=== PATIENT | female | born 1960 | race Caucasian/White ===

== ENCOUNTER 2020-12-04 12:05 | Inpatient (IN) | payer BC ==
[~2020-12-04] VITALS: Ht 167.6 cm; Wt 158.8 kg
[2020-12-04 14:35] LABS: RED BLOOD COUNT 4.46 M/UL (4.00-5.10); WHITE BLOOD COUNT 6.9 K/UL (4.5-11.0)
[2020-12-04] MEDS ORDERED: SULFAMETHOXAZO1 EACH PO (16:45)
[2020-12-04] MEDS ORDERED: ENBREL50 MG/1 M1 SQ (16:46)
[2020-12-04] MEDS ORDERED: WARFARIN SODIUM1 MG PO (16:47)
[2020-12-04] MEDS ORDERED: WARFARIN SODIUM5 MG PO (16:47)
[2020-12-04] MEDS ORDERED: OXYBUTYNIN CHLO15 MG PO (16:49)
[2020-12-04] MEDS ORDERED: POTASSIUM CITR10 MEQ PO (16:50)
[2020-12-04] MEDS ORDERED: TENORMIN 50 MG50 MG PO (16:51)
[2020-12-04] MEDS ORDERED: MONTELUKAST SOD10 MG PO (16:51)
[2020-12-04] MEDS ORDERED: ATORVASTATIN CA10 MG PO (16:52)
[2020-12-04] MEDS ORDERED: LEVOTHYROXINE125 MCG PO (16:53)
[2020-12-04] MEDS ORDERED: XYZAL5 MG PO (16:54)
[2020-12-04] MEDS ORDERED: SLOW RELEASE I142 MG PO (16:56)
[2020-12-04] MEDS ORDERED: HYDROCHLOROTHIA25 MG PO (16:58)
[2020-12-05 05:31] LABS: RED BLOOD COUNT 4.23 M/UL (4.00-5.10); WHITE BLOOD COUNT 5.2 K/UL (4.5-11.0)
[2020-12-06 02:51] LABS: HEMOGLOBIN 11.9 gm/dl (12.3-15.3); RED BLOOD COUNT 4.11 M/UL (4.00-5.10)
[2020-12-07 03:48] LABS: HEMOGLOBIN 11.8 gm/dl (12.3-15.3); RED BLOOD COUNT 4.06 M/UL (4.00-5.10); WHITE BLOOD COUNT 4.2 K/UL (4.5-11.0)
[2020-12-08 04:36] LABS: HEMOGLOBIN 12.1 gm/dl (12.3-15.3); RED BLOOD COUNT 4.13 M/UL (4.00-5.10); WHITE BLOOD COUNT 4.2 K/UL (4.5-11.0)
[2020-12-08] MEDS ORDERED: FUROSEMIDE20 MG PO (11:02)
[2020-12-08] MEDS ORDERED: MUPIROCIN30 GM TOP (11:02)
--- NOTE | 2020-12-08 12:29 | NUR ---
INSTRUCTED ON APPOINTMENT AT [facility], MED CHANGES AND IMPORTANCE OF KEEPING LEGS ELEVATED WITH EDEMA. VERBALIZED UNDERSTANDING. Eliezer GAINES,
== END 2020-12-08 13:57 | disposition home or self-care (01) | DRG 603 ==
LOC: ER1 12:05 → CDU 15:25 → MED SURG 4 15:25
PROVIDERS: Physician Assistant; ADMIT Internal Medicine
DX: L03.115 Cellulitis of right lower limb (principal); I13.0 Hypertensive heart and chronic kidney disease with heart failure and stage 1 through stage 4 chronic kidney disease, or unspecified chronic kidney disease; N17.9 Acute kidney failure, unspecified; D68.51 Activated protein C resistance; Z20.822 Contact with and (suspected) exposure to COVID-19; Z68.43 Body mass index [BMI] 50.0-59.9, adult; B95.62 Methicillin resistant Staphylococcus aureus infection as the cause of diseases classified elsewhere; E66.01 Morbid (severe) obesity due to excess calories; N18.30 Chronic kidney disease, stage 3 unspecified; E78.5 Hyperlipidemia, unspecified; E87.70 Fluid overload, unspecified; I87.8 Other specified disorders of veins; D63.1 Anemia in chronic kidney disease; L40.50 Arthropathic psoriasis, unspecified; E03.9 Hypothyroidism, unspecified; Z86.718 Personal history of other venous thrombosis and embolism; Z79.01 Long term (current) use of anticoagulants; Z82.49 Family history of ischemic heart disease and other diseases of the circulatory system; Z80.9 Family history of malignant neoplasm, unspecified
CPT/HCPCS: 36415; 80048; 80053; 80202; 82436; 82570; 83036; 84133; 84156; 84300; 84439; 84443; 85025; 85610; 85652; 86140; 87040; 87070; 87077; 87186; 87205; 93971; 96374; 96375; 96376; 99284; G0378; J0692; J3370; J7050; J7070; U0002

== ENCOUNTER → 2020-12-09 | Outpatient (CLI) | payer BC ==
[~2020-12-09] VITALS: Ht 167 cm; Wt 158.0 kg
[~2020-12-09] MED LIST: ATORVASTATIN CA10 MG PO; ENBREL50 MG/1 M1 SQ; FUROSEMIDE20 MG PO; HYDROCHLOROTHIA25 MG PO; LEVOTHYROXINE125 MCG PO; MONTELUKAST SOD10 MG PO; MUPIROCIN30 GM TOP; OXYBUTYNIN CHLO15 MG PO; POTASSIUM CITR10 MEQ PO; SLOW RELEASE I142 MG PO; SULFAMETHOXAZO1 EACH PO; TENORMIN 50 MG50 MG PO; WARFARIN SODIUM1 MG PO; WARFARIN SODIUM5 MG PO; XYZAL5 MG PO
== END ==
LOC: OPSV 10:29
DX: L03.115 Cellulitis of right lower limb (principal)
CPT/HCPCS: 96365; J0875; J7060

== ENCOUNTER → 2020-12-22 | Outpatient (CLI) | payer BC | LOC: WCC 12:59 | DX: I83.013 Varicose veins of right lower extremity with ulcer of ankle (principal); L97.812 Non-pressure chronic ulcer of other part of right lower leg with fat layer exposed; I12.9 Hypertensive chronic kidney disease with stage 1 through stage 4 chronic kidney disease, or unspecified chronic kidney disease; N18.30 Chronic kidney disease, stage 3 unspecified; E66.01 Morbid (severe) obesity due to excess calories; M06.9 Rheumatoid arthritis, unspecified; D68.2 Hereditary deficiency of other clotting factors; L40.52 Psoriatic arthritis mutilans; E03.9 Hypothyroidism, unspecified; Z68.43 Body mass index [BMI] 50.0-59.9, adult; Z79.01 Long term (current) use of anticoagulants; Z79.899 Other long term (current) drug therapy | CPT/HCPCS: G0463 ==

== ENCOUNTER → 2020-12-29 | Outpatient (CLI) | payer BC | LOC: WCC 13:08 | DX: I83.013 Varicose veins of right lower extremity with ulcer of ankle (principal); L97.812 Non-pressure chronic ulcer of other part of right lower leg with fat layer exposed; I12.9 Hypertensive chronic kidney disease with stage 1 through stage 4 chronic kidney disease, or unspecified chronic kidney disease; E11.22 Type 2 diabetes mellitus with diabetic chronic kidney disease; N18.9 Chronic kidney disease, unspecified; D68.2 Hereditary deficiency of other clotting factors; L40.52 Psoriatic arthritis mutilans; E78.5 Hyperlipidemia, unspecified; E03.9 Hypothyroidism, unspecified; E66.01 Morbid (severe) obesity due to excess calories; Z68.43 Body mass index [BMI] 50.0-59.9, adult; Z79.01 Long term (current) use of anticoagulants; Z79.2 Long term (current) use of antibiotics; Z79.899 Other long term (current) drug therapy ==

== ENCOUNTER → 2021-01-05 | Outpatient (CLI) | payer BC | LOC: WCC 15:30 | DX: I83.013 Varicose veins of right lower extremity with ulcer of ankle (principal); L97.311 Non-pressure chronic ulcer of right ankle limited to breakdown of skin; L40.52 Psoriatic arthritis mutilans; I10 Essential (primary) hypertension; D68.2 Hereditary deficiency of other clotting factors; E66.01 Morbid (severe) obesity due to excess calories | CPT/HCPCS: 97597 ==

== ENCOUNTER → 2021-01-12 | Outpatient (CLI) | payer BC | LOC: WCC 13:22 | DX: I87.311 Chronic venous hypertension (idiopathic) with ulcer of right lower extremity (principal); L97.311 Non-pressure chronic ulcer of right ankle limited to breakdown of skin; I12.9 Hypertensive chronic kidney disease with stage 1 through stage 4 chronic kidney disease, or unspecified chronic kidney disease; N18.9 Chronic kidney disease, unspecified; E66.01 Morbid (severe) obesity due to excess calories; B95.62 Methicillin resistant Staphylococcus aureus infection as the cause of diseases classified elsewhere; L40.52 Psoriatic arthritis mutilans; E78.5 Hyperlipidemia, unspecified; D68.2 Hereditary deficiency of other clotting factors; E03.9 Hypothyroidism, unspecified; Z79.01 Long term (current) use of anticoagulants; Z68.43 Body mass index [BMI] 50.0-59.9, adult ==

== ENCOUNTER → 2021-01-18 | Outpatient (CLI) | payer BC | LOC: WCC 13:17 | DX: I87.311 Chronic venous hypertension (idiopathic) with ulcer of right lower extremity (principal); L97.811 Non-pressure chronic ulcer of other part of right lower leg limited to breakdown of skin; E66.01 Morbid (severe) obesity due to excess calories; M79.661 Pain in right lower leg; D68.2 Hereditary deficiency of other clotting factors; L40.52 Psoriatic arthritis mutilans; I12.0 Hypertensive chronic kidney disease with stage 5 chronic kidney disease or end stage renal disease; N18.6 End stage renal disease; M06.9 Rheumatoid arthritis, unspecified | CPT/HCPCS: 97597 ==

== ENCOUNTER → 2021-01-26 | Outpatient (CLI) | payer BC | LOC: WCC 13:20 | DX: I87.311 Chronic venous hypertension (idiopathic) with ulcer of right lower extremity (principal); L97.812 Non-pressure chronic ulcer of other part of right lower leg with fat layer exposed; E66.01 Morbid (severe) obesity due to excess calories; Z68.43 Body mass index [BMI] 50.0-59.9, adult; I12.9 Hypertensive chronic kidney disease with stage 1 through stage 4 chronic kidney disease, or unspecified chronic kidney disease; N18.9 Chronic kidney disease, unspecified; M79.661 Pain in right lower leg; D68.2 Hereditary deficiency of other clotting factors; L40.52 Psoriatic arthritis mutilans; E78.5 Hyperlipidemia, unspecified; L40.50 Arthropathic psoriasis, unspecified; E03.9 Hypothyroidism, unspecified; Z79.01 Long term (current) use of anticoagulants ==

== ENCOUNTER → 2021-02-01 | Outpatient (CLI) | payer BC | LOC: WCC 11:15 | DX: I83.013 Varicose veins of right lower extremity with ulcer of ankle (principal); L97.813 Non-pressure chronic ulcer of other part of right lower leg with necrosis of muscle; I12.9 Hypertensive chronic kidney disease with stage 1 through stage 4 chronic kidney disease, or unspecified chronic kidney disease; N18.9 Chronic kidney disease, unspecified; D68.2 Hereditary deficiency of other clotting factors; E66.01 Morbid (severe) obesity due to excess calories; L40.52 Psoriatic arthritis mutilans; E78.5 Hyperlipidemia, unspecified; E03.9 Hypothyroidism, unspecified; Z68.43 Body mass index [BMI] 50.0-59.9, adult; Z79.01 Long term (current) use of anticoagulants; Z79.899 Other long term (current) drug therapy ==

== ENCOUNTER → 2021-02-08 | Outpatient (CLI) | payer BC | LOC: WCC 11:30 | DX: I83.013 Varicose veins of right lower extremity with ulcer of ankle (principal); L97.812 Non-pressure chronic ulcer of other part of right lower leg with fat layer exposed; I12.9 Hypertensive chronic kidney disease with stage 1 through stage 4 chronic kidney disease, or unspecified chronic kidney disease; N18.9 Chronic kidney disease, unspecified; D68.2 Hereditary deficiency of other clotting factors; E03.9 Hypothyroidism, unspecified; E78.5 Hyperlipidemia, unspecified; L40.52 Psoriatic arthritis mutilans; E66.01 Morbid (severe) obesity due to excess calories; Z68.43 Body mass index [BMI] 50.0-59.9, adult; Z79.01 Long term (current) use of anticoagulants; Z79.899 Other long term (current) drug therapy ==

== ENCOUNTER → 2021-02-16 | Outpatient (CLI) | payer BC | LOC: WCC 10:03 | DX: I83.013 Varicose veins of right lower extremity with ulcer of ankle (principal); L97.812 Non-pressure chronic ulcer of other part of right lower leg with fat layer exposed; I12.9 Hypertensive chronic kidney disease with stage 1 through stage 4 chronic kidney disease, or unspecified chronic kidney disease; N18.9 Chronic kidney disease, unspecified; E78.5 Hyperlipidemia, unspecified; E03.9 Hypothyroidism, unspecified; D68.2 Hereditary deficiency of other clotting factors; L40.52 Psoriatic arthritis mutilans; E66.01 Morbid (severe) obesity due to excess calories; Z68.43 Body mass index [BMI] 50.0-59.9, adult; Z79.01 Long term (current) use of anticoagulants; Z79.899 Other long term (current) drug therapy ==

== ENCOUNTER → 2021-02-23 | Outpatient (CLI) | payer BC | LOC: WCC 10:30 | DX: I83.013 Varicose veins of right lower extremity with ulcer of ankle (principal); L97.812 Non-pressure chronic ulcer of other part of right lower leg with fat layer exposed; I12.9 Hypertensive chronic kidney disease with stage 1 through stage 4 chronic kidney disease, or unspecified chronic kidney disease; N18.9 Chronic kidney disease, unspecified; E66.01 Morbid (severe) obesity due to excess calories; D68.2 Hereditary deficiency of other clotting factors; L40.52 Psoriatic arthritis mutilans; Z68.43 Body mass index [BMI] 50.0-59.9, adult; Z79.01 Long term (current) use of anticoagulants; Z79.899 Other long term (current) drug therapy ==

== ENCOUNTER → 2021-03-09 | Outpatient (CLI) | payer BC | LOC: WCC 09:43 | DX: I87.311 Chronic venous hypertension (idiopathic) with ulcer of right lower extremity (principal); E66.01 Morbid (severe) obesity due to excess calories; I10 Essential (primary) hypertension; M79.661 Pain in right lower leg; D68.2 Hereditary deficiency of other clotting factors; L40.52 Psoriatic arthritis mutilans | CPT/HCPCS: 97597 ==

== ENCOUNTER → 2021-03-16 | Outpatient (CLI) | payer BC | LOC: WCC 10:45 | DX: I87.311 Chronic venous hypertension (idiopathic) with ulcer of right lower extremity (principal); L97.812 Non-pressure chronic ulcer of other part of right lower leg with fat layer exposed; L97.319 Non-pressure chronic ulcer of right ankle with unspecified severity; M79.661 Pain in right lower leg; D68.2 Hereditary deficiency of other clotting factors; L40.52 Psoriatic arthritis mutilans; E66.01 Morbid (severe) obesity due to excess calories; Z68.43 Body mass index [BMI] 50.0-59.9, adult; Z79.01 Long term (current) use of anticoagulants; E78.5 Hyperlipidemia, unspecified; E03.9 Hypothyroidism, unspecified; I12.9 Hypertensive chronic kidney disease with stage 1 through stage 4 chronic kidney disease, or unspecified chronic kidney disease; N18.9 Chronic kidney disease, unspecified | CPT/HCPCS: 97597 ==

== ENCOUNTER → 2021-03-23 | Outpatient (CLI) | payer BC | LOC: WCC 11:16 | DX: I87.2 Venous insufficiency (chronic) (peripheral) (principal); I87.311 Chronic venous hypertension (idiopathic) with ulcer of right lower extremity; L97.812 Non-pressure chronic ulcer of other part of right lower leg with fat layer exposed; L97.319 Non-pressure chronic ulcer of right ankle with unspecified severity; I10 Essential (primary) hypertension; L40.52 Psoriatic arthritis mutilans; D68.2 Hereditary deficiency of other clotting factors; E66.01 Morbid (severe) obesity due to excess calories; Z79.899 Other long term (current) drug therapy; Z79.890 Hormone replacement therapy; Z79.01 Long term (current) use of anticoagulants ==

== ENCOUNTER → 2021-04-06 | Outpatient (CLI) | payer BC | LOC: WCC 11:24 | DX: I87.311 Chronic venous hypertension (idiopathic) with ulcer of right lower extremity (principal); L97.319 Non-pressure chronic ulcer of right ankle with unspecified severity; I83.013 Varicose veins of right lower extremity with ulcer of ankle; I12.0 Hypertensive chronic kidney disease with stage 5 chronic kidney disease or end stage renal disease; N18.6 End stage renal disease; E78.5 Hyperlipidemia, unspecified; E03.9 Hypothyroidism, unspecified; E66.01 Morbid (severe) obesity due to excess calories; L40.52 Psoriatic arthritis mutilans; M06.9 Rheumatoid arthritis, unspecified; D68.2 Hereditary deficiency of other clotting factors; Z68.43 Body mass index [BMI] 50.0-59.9, adult | CPT/HCPCS: G0463 ==